=== PATIENT | female | born 1945 | race Caucasian/White ===

== ENCOUNTER 2021-06-29 10:35 | Inpatient (IN) | payer MEDICARE ==
[~2021-06-29] VITALS: Ht 157.5 cm; Wt 62.8 kg
[2021-06-29] VITALS (11 sets, daily range): BP systolic 112–150; BP diastolic 42–73
[2021-06-29] MEDS ORDERED: HEPARIN 10,000 UNIT/10ML (1,000 UNIT/ML) VIAL ONE (16:19)
[2021-06-29] MEDS ORDERED: NITROGLYCERIN 50MG VIAL ONE (16:19)
[2021-06-29] MEDS ORDERED: IOHEXOL 350 MG/ML 100ML INFUS..BTL IV ONE (16:19)
[2021-06-29] MEDS ORDERED: LIDOCAINE HCL 1% 20 ML VIAL ONE (16:19)
[2021-06-29] MEDS ORDERED: IOHEXOL-350 50ML VIAL IV ONE (16:19)
[2021-06-29] MEDS ORDERED: MIDAZOLAM HCL 1 MG/ML 2ML VIAL ONE (16:20)
[2021-06-29] MEDS ORDERED: FENTANYL CITRATE PF 50 MCG/1 ML 2ML VIAL ONE (16:20)
[2021-06-29] MEDS ORDERED: 0.9%NACL 1000ML 1,000 ML IV SCH (17:30)
[2021-06-29] MEDS ORDERED: ESCI10TA PO (18:30)
[2021-06-29] MEDS ORDERED: SIMV40TA59 PO (18:30)
[2021-06-29] MEDS ORDERED: ACET-66 PO (18:30)
[2021-06-29] MEDS ORDERED: ASPI-1197 PO (18:30)
[2021-06-29] MEDS ORDERED: LOSA1TAB7 PO (18:30)
[2021-06-29] MEDS ORDERED: AMLO5TAB5 PO (18:30)
[2021-06-29] MEDS ORDERED: METO50 PO (18:30)
[2021-06-29] MEDS ORDERED: PRAM0.25 PO (18:30)
[2021-06-29] MEDS: METOPROLOL TARTRATE 50 MG TAB PO SCH (20:28)
[2021-06-29] MEDS: FAMOTIDINE 20MG VIAL IV SCH (20:28)
[2021-06-29] MEDS ORDERED: ACETAMINOPHEN 325 MG TAB PO PRN (20:30)
[2021-06-29] MEDS ORDERED: PRAMIPEXOLE DI-HCL 0.25 MG TABLET PO SCH (21:30)
[2021-06-30 00:01] VITALS: BP 126/62
[2021-06-30 03:28] LABS: BASOPHILS % (AUTO) 0.4 % (0.0-5.0); EOSINOPHILS % (AUTO) 3.5 % (0.0-8.0); HEMATOCRIT 31.3 % (36-48); MEAN CORPUSCULAR HEMOGLOBIN 25.1 pg (27.0-33.0); MEAN CORPUSCULAR VOLUME 81.1 fL (79-99); MONOCYTES % (AUTO) 13.9 % (3.0-13.0); NEUTROPHILS % (AUTO) 59.9 % (40.0-77.0); PLATELET COUNT (AUTO) 205 K/uL (130-400); RED BLOOD CELL COUNT(AUTO) 3.86 MIL/uL (4.00-5.50); RED CELL DISTRIBUTION WIDTH 13.9 % (11.0-15.5); WHITE BLOOD COUNT (AUTO) 6.9 K/uL (4.8-10.8)
[2021-06-30 03:35] VITALS: BP 134/51
[2021-06-30 08:00] VITALS: BP 122/57
[2021-06-30] MEDS: METOPROLOL TARTRATE 50 MG TAB PO SCH (08:30)
[2021-06-30] MEDS: FAMOTIDINE 20MG VIAL IV SCH (08:33)
[2021-06-30] MEDS ORDERED: CLOP75TA14 PO (08:46)
[2021-06-30] MEDS ORDERED: LOSARTAN 50 MG TABLET PO SCH (09:00)
[2021-06-30] MEDS ORDERED: CLOPIDOGREL 75MG TAB PO SCH (09:00)
[2021-06-30] MEDS ORDERED: HYDROCHLOROTHIAZIDE 25 MG TABLET PO SCH (09:00)
[2021-06-30] MEDS ORDERED: ENOXAPARIN SODIUM 40 MG/0.4 ML SYRINGE SQ SCH (09:00)
[2021-06-30] MEDS ORDERED: ASPIRIN 81MG CHEW TAB PO SCH (09:00)
== END 2021-06-30 11:30 | disposition home or self-care (01) | DRG 281 ==
LOC: 2AH 12:10 → 2DH 12:17
PROVIDERS: ADMIT Internal Medicine; ATTEND Internal Medicine
PROC: 4A023N7 Measurement of Cardiac Sampling and Pressure, Left Heart, Percutaneous Approach (ICD-10-PCS; principal; 2021-06-29)
PROC: B2111ZZ Fluoroscopy of Multiple Coronary Arteries using Low Osmolar Contrast (ICD-10-PCS; 2021-06-29)
PROC: B2151ZZ Fluoroscopy of Left Heart using Low Osmolar Contrast (ICD-10-PCS; 2021-06-29)
DX: I21.4 Non-ST elevation (NSTEMI) myocardial infarction (principal); I47.1 Supraventricular tachycardia; I10 Essential (primary) hypertension; E78.5 Hyperlipidemia, unspecified; G25.81 Restless legs syndrome; Z79.899 Other long term (current) drug therapy; Z79.82 Long term (current) use of aspirin; D64.9 Anemia, unspecified; Z90.710 Acquired absence of both cervix and uterus; Z85.819 Personal history of malignant neoplasm of unspecified site of lip, oral cavity, and pharynx; I25.10 Atherosclerotic heart disease of native coronary artery without angina pectoris; Z79.02 Long term (current) use of antithrombotics/antiplatelets
CPT/HCPCS: 36415; 82948; 85025; 93458; 99156; 99157; C1760; C1894; G0378; J1644; J1650; J2250; J3010; J3490; J7030; Q9967